=== PATIENT | female | born 1970 | race Caucasian/White ===

== ENCOUNTER 2017-02-24 19:40 | Emergency (ER) | payer BC ==
[~2017-02-24] VITALS: Ht 154.9 cm; Wt 67.2 kg
[~2017-02-24 19:40] MED LIST: NONE PER PT
[2017-02-24] MEDS ORDERED: DIAZEPAM 5 MG/ML, 2ML IM ONE (20:03)
[2017-02-24] MEDS ORDERED: OXYcodone/APAP 5/325MG TABLET ONE (20:21)
[2017-02-24] MEDS ORDERED: ONDANSETRON ODT 4 MG ONE (20:21)
[2017-02-24] MEDS ORDERED: DIAZEPAM 5 MG/ML, 2ML ONE (20:22)
[2017-02-24] MEDS ORDERED: OXYcodone/APAP 5/325MG TABLET PO ONE (20:30)
[2017-02-24] MEDS ORDERED: ONDANSETRON ODT 4 MG PO ONE (20:30)
[2017-02-24] MEDS ORDERED: KETOROLAC 30 MG/1 ML ONE (21:22)
[2017-02-24] MEDS ORDERED: HYDROmorphone 1 MG/ML, 1ML ONE (21:22)
[2017-02-24] MEDS ORDERED: HYDROmorphone 1 MG/ML, 1ML IM STA (21:24)
[2017-02-24] MEDS ORDERED: KETOROLAC 60 MG/2 ML IM ONE (21:30)
[2017-02-24 22:14] VITALS: BP 100/78
== END 2017-02-24 22:19 | disposition home or self-care (01) ==
LOC: ED 20:39
DX: G24.3 Spasmodic torticollis (principal)
CPT/HCPCS: 72050; 93005; 96372; 99284; J1170; J1885; J3360; Q0162

== ENCOUNTER 2017-07-12 10:09 | Emergency (ER) | payer BC ==
[~2017-07-12] VITALS: Ht 157.5 cm; Wt 67.4 kg
[2017-07-12 10:10] VITALS: BP 134/88
[2017-07-12] MEDS ORDERED: BACITRACIN ZINC OINT 500U/GM, 0.9 GM ONE (11:46)
== END 2017-07-12 12:01 | disposition home or self-care (01) ==
LOC: ED 10:36
DX: S80.02XA Contusion of left knee, initial encounter (principal); F41.1 Generalized anxiety disorder; W01.0XXA Fall on same level from slipping, tripping and stumbling without subsequent striking against object, initial encounter; Y93.02 Activity, running; Y92.89 Other specified places as the place of occurrence of the external cause; Y99.8 Other external cause status
CPT/HCPCS: 99284

== ENCOUNTER 2019-02-14 08:29 | Emergency (ER) | payer BC ==
[~2019-02-14] VITALS: Ht 157.5 cm; Wt 65.9 kg
[~2019-02-14 08:29] MED LIST changes: +ALPR1TAB2 PO
--- NOTE | 2019-02-14 08:44 | NUR ---
chest pain center of chest started 0400. pt recieve ASA, nitro, and zofran prehospital. no acute distress noted. cardiac technologist in place. VSS stable.
--- NOTE | 2019-02-14 08:54 | NUR ---
lab and xray to room. pt offered nitro and refused. pain reported 3 or 4/10.
[2019-02-14] MEDS ORDERED: NITROGLYCERIN SINGLE TAB 0.4 MG SL PRN (09:00)
[2019-02-14] MEDS ORDERED: MULT-658 PO (09:03)
[2019-02-14] MEDS ORDERED: LORazepam 1MG TABLET ONE (09:07)
[2019-02-14 09:23] LABS: MEAN CORPUSCULAR HEMOGLOBIN 31.1 pg (27.0-34.8); MEAN CORPUSCULAR HGB CONC 33.8 g/dL (32.4-35.8); MEAN CORPUSCULAR VOLUME 92.1 fL (80-100); MEAN PLATELET VOLUME 7.6 fL (7.4-10.4); PLATELET COUNT 298 x10^3/uL (130-400); RED BLOOD COUNT 4.51 x10^6/uL (3.82-5.3); RED CELL DISTRIBUTION WIDTH 13.4 % (9.6-15.2)
[2019-02-14] MEDS ORDERED: LORazepam 1MG TABLET PO ONE (09:30)
[2019-02-14 09:32] LABS: INTERNATIONAL NORMALIZED RATIO 0.98 (0.93-1.1); PROTHROMBIN TIME 10.3 Seconds (9.6-11.5)
[2019-02-14 09:35] LABS: ALANINE AMINOTRANSFERASE 24 U/L (12-78); ANION GAP 7 mmol/L (5-15); CALCIUM 8.9 mg/dL (8.5-10.1); CHLORIDE 109 mmol/L (98-107); CREATININE 0.47 mg/dL (0.55-1.02)
[2019-02-14 09:39] LABS: ALKALINE PHOSPHATASE 52 U/L (45-117); BILIRUBIN,TOTAL 0.8 mg/dL (0.2-1.0); TOTAL PROTEIN 7.9 g/dL (6.4-8.2); TROPONIN I < 0.015 ng/mL (0.000-0.045)
[2019-02-14 09:53] LABS: BASOPHILS # (AUTO) 0.05 x10^3/uL (0-0.1); BASOPHILS % (AUTO) 0 % (0-1); EOSINOPHILS # (AUTO) 0.04 x10^3/uL (0-0.4); EOSINOPHILS % (AUTO) 0 % (1-7); LYMPHOCYTES # (AUTO) 0.98 x10^3/uL (1-3.4); LYMPHOCYTES % (AUTO) 6 % (22-44); MD SCAN; MONOCYTES # (AUTO) 0.19 x10^3/uL (0.2-0.8); MONOCYTES % (AUTO) 1 % (2-9); NEUTROPHILS # (AUTO) 13.95 x10^3/uL (1.8-6.8); NEUTROPHILS % (AUTO) 92 % (42-75)
--- NOTE | 2019-02-14 10:13 | NUR ---
PT SITTING UP ON GURNEY, NO ACUTE DISTRESS NOTED, STATES "FEELS A LITTLE BETTER" SR PER MONITOR, IV DC'D WITH CANNULA INTACT. REVIEWED DC INSTRUCTIONS WITH PT, UNDERSTANDING VERBALIZED. PT LEFT AMB WITH SPOUSE.
[2019-02-14 10:14] VITALS: BP 105/76
== END 2019-02-14 10:16 | disposition home or self-care (01) ==
LOC: ED 09:19
DX: R07.89 Other chest pain (principal); R11.2 Nausea with vomiting, unspecified; R06.02 Shortness of breath; F17.200 Nicotine dependence, unspecified, uncomplicated
CPT/HCPCS: 36415; 71045; 80053; 83690; 84484; 85025; 85610; 85730; 93005; 99284